=== PATIENT | male | born 1980 | race Caucasian/White ===

== ENCOUNTER 2018-03-28 02:35 | Emergency (ER) | payer BC ==
[2018-03-28] MEDS ORDERED: NS 0.9% 1000 ML** 1,000 ML IV ONE (02:57)
--- NOTE | 2018-03-28 03:02 | ED ---
Complex/Multi-Sys Presentation - HPI Summary HPI Summary: This patient is a 37 year old M presenting to ED with a chief complaint of weakness of arms and legs since RESPIRATORY PRACTITIONER. He woke up an hour after taking Seroquel ( he takes 25 mg every night but has been skipping some nights recently) and couldnt move. He called the ambulance and they went to his house and checked up on him. He went to the bathroom after the ambulance left and vomited. The patient rates the pain 4/10 in severity. Symptoms aggravated by nothing. Symptoms alleviated by nothing. Patient has been going to a utility aircrewman because of CP. He reports that he has lied to his utility aircrewman about using marijuana. - History Of Current Complaint Chief Complaint: EDGeneral Time Seen by Provider: 03/28/18 02:47 Hx Obtained From: Patient Onset/Duration: Sudden Onset, Lasting Hours Timing: Hours Severity Currently: Mild Severity Initially: Mild - 4/10 Aggravating Factor(s): nothing Alleviating Factor(s): nothing Associated Signs And Symptoms: Positive: Weakness - of arms and legs, Nausea, Vomiting - Allergies/Home Medications Allergies/Adverse Reactions: Allergies Allergy/AdvReac Type Severity Reaction Status Date / Time No Known Allergies Allergy Verified 01/10/16 20:48 PMH/Surg Hx/FS Hx/Imm Hx Endocrine/Hematology History: Denies: Hx Diabetes, Hx Thyroid Disease Cardiovascular History: Denies: Hx Hypertension Respiratory History: Denies: Hx Asthma, Hx Chronic Obstructive Pulmonary Disease (COPD) GI History: Denies: Hx Ulcer Psychiatric History: Reports: Hx Bipolar Disorder Infectious Disease History: Yes Infectious Disease History: Denies: Hx Hepatitis, Hx Human Immunodeficiency Virus (HIV), Traveled Outside the [place] in Last 30 Days - Family History Known Family History: Negative: Cardiac Disease, Hypertension - Social History Alcohol Use: None Substance Use Type: Reports: Marijuana Smoking Status (MU): Former Smoker Review of Systems Positive: Chest Pain - sees a utility aircrewman for this issue Positive: Vomiting, Nausea Positive: Weakness - of arms and legs All Other Systems Reviewed And Are Negative: Yes Physical Exam - Summary Physical Exam Summary: VITAL SIGNS: Reviewed. GENERAL: Patient is a well-developed and nourished MALE who is lying comfortable in the stretcher. Patient is not in any acute respiratory distress. HEAD AND FACE: No signs of trauma. No ecchymosis, hematomas or skull depressions. No sinus tenderness. EYES: PERRLA, EOMI x 2, No injected conjunctiva, no nystagmus. EARS: Hearing grossly intact. Ear canals and tympanic membranes are within normal limits. MOUTH: Oropharynx within normal limits. NECK: Supple, trachea is midline, no adenopathy, no JVD, no carotid bruit, no c- spine tenderness, neck with full ROM. CHEST: Symmetric, no tenderness at palpation LUNGS: Clear to auscultation bilaterally. No wheezing or crackles. CVS: Regular rate and rhythm, S1 and S2 present, no murmurs or gallops appreciated. ABDOMEN: Soft, non-tender. No signs of distention. No rebound no guarding, and no masses palpated. Bowel sounds are normal. EXTREMITIES: FROM in all major joints, no edema, no cyanosis or clubbing. NEURO: Alert and oriented x 3. No acute neurological deficits. Speech is normal and follows commands. SKIN: Dry and warm PSYCH: anxious Triage Information Reviewed: Yes Vital Signs On Initial Exam: Initial Vitals Temp Pulse Resp BP Pulse Ox 97.1 F 76 22 118/76 99 03/28/18 02:38 03/28/18 02:38 03/28/18 02:38 03/28/18 02:38 03/28/18 02:38 Vital Signs Reviewed: Yes Diagnostics - Vital Signs Vital Signs Temp Pulse Resp BP Pulse Ox 03/28/18 02:38 97.1 F 76 22 118/76 99 - Laboratory Result Diagrams: 03/28/18 03:00 03/28/18 03:00 Lab Statement: Any lab studies that have been ordered have been reviewed, and results considered in the medical decision making process. Complex Multi-Symp Course/Dx Assessment/Plan: This patient is a 37 year old M presenting to ED with a chief complaint of weakness of arms and legs since RESPIRATORY PRACTITIONER. He woke up an hour after taking Seroquel (he takes 25 mg every night but has been skipping some nights recently) and couldnt move. He called the ambulance and they went to his house and checked up on him. He went to the bathroom after the ambulance left and vomited. Patient has been going to a utility aircrewman because of CP. He reports that he has lied to his utility aircrewman about using marijuana. In the ED course, the patient was given fluids. This patient will be discharged with dx of weakness. Patient understands and agrees with this plan. - Diagnoses Differential Diagnoses/HQI/PQRI: Other - weakness Provider Diagnoses: Weakness Discharge - Sign-Out/Discharge Documenting (check all that apply): Patient Departure - discharge Patient Received Moderate/Deep Sedation with Procedure: No - Discharge Plan Condition: Stable Disposition: HOME Patient Education Materials: Weakness (ED) Referrals: Santosh Stuart MD [Primary Care Provider] - (Follow up in 1-2 days.) Additional Instructions: RETURN TO THE EMERGENCY DEPARTMENT FOR CHANGING OR WORSENING SYMPTOMS. FOLLOW UP WITH PCP IN 1-2 DAYS. - Attestation Statements Document Initiated by Scribe: Yes Documenting Scribe: Greg Paul Provider For Whom Scribe is Documenting (Include Credential): Sony Virgen MD Scribe Attestation: Greg Ochoa, scribed for Sony Virgen MD on 03/28/18 at 0350. Status of Scribe Document: Ready
[2018-03-28 03:10] LABS: ABS Basophils 0 10^3/ul (0-0.2); ABS Eosinophils 0.2 10^3/ul (0-0.6); ABS Lymphocytes 2.3 10^3/ul (1.0-4.8); ABS Monocytes 0.7 10^3/ul (0-0.8); ABS Neutrophils 3.6 10^3/ul (1.5-7.7); ABS Nucleated RBC 0 10^3/ul; Eosinophil % 2.5 %; Hematocrit 39 % (42-52); Lymphocyte % 33.4 %; Mean Corpuscular HGB Conc 33 g/dl (31-36); Mean Corpuscular Hemoglobin 31 pg (27-31); Mean Corpuscular Volume 93 fL (80-94); Mean Platelet Volume 8.1 fL (7.4-10.4); Nucleated Red Blood Cells % 0; Platelet Count 190 10^3/ul (150-450); Red Blood Count 4.21 10^6/ul (4.00-5.40); Red Cell Distribution Width 13 % (10.5-15); White Blood Count 6.8 10^3/ul (3.5-10.8)
--- OUTSIDE RECORDS SUMMARY | 2018-03-28 03:10 | XMS REPORT | Continuity of Care Document ---
:1980 External Reference #:[id number] Author Name Luis Fernando Avendaño Care Team Providers Name Role Phone Santosh Stuart MD Primary Care Physician Unavailable Payers Type Date Identification Numbers Payment Provider Subscriber Effective: Policy Number: [id number] [employer] James Calderon 2016 PayID: [id number] [address] [address] [place] [address] Advance Directives Description No Information Available Problems Description No Information Family History Date Family Member(s) Problem(s) Comments Father Congestive Heart Failure (CHF) Father Congestive Heart Failure (CHF) WPW Syndrome alcoholic Father Hypercholesterolemia Mother Hypercholesterolemia Mother Hypercholesterolemia MGF jan of [place] Onset: Siblings 3 (12/25/2016) Siblings 3 1 brother born with "hole in the heart" Social History Type Date Description Comments Sex Unknown Marital Status Single Lives With Roommate Occupation [employer] ETOH Use 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 still trying to get to a state of abstinence in regards to alcohol Tobacco Use Start: Unknown Patient has never smoked Recreational Drug Use Denies Drug Use Smoking Status Reviewed: 03/15/18 Patient has never smoked Exercise Type/Frequency Exercises regularly Allergies, Adverse Reactions, Alerts Description No Known Drug Allergies Medications Medication Date Status Form Strength Qnty SIG Indications Ordering Provider Depakote Active 500mg 3 po q hs Unknown 00 Seroquel Active Tablets 50mg take 1/2 Unknown 00 tablet by mouth at bedtime Ibuprofen Hx Tablets 600mg three Unknown 00 - times a 02/01/20 day prn 17 Azelastine HCL Hx Solution 0.05% 1 drop Unknown (Ophthalmic) 00 - each eye 11/05/20 twice 17 daily Immunizations Description No Information Available Vital Signs Date Vital Result Comment 03/15/2018 3:56pm Height 68 inches 5'8" Weight 180.00 lb with shoes Heart Rate 78 /min BP Systolic Sitting 118 mmHg BP Diastolic Sitting 80 mmHg BMI (Body Mass Index) 27.4 kg/m2 Ejection Fraction 55-60% echo 01/04/17 02/01/2017 12:56pm Height 68 inches 5'8" Weight 195.00 lb w/shoes Heart Rate 80 /min BP Systolic Sitting 112 mmHg LA lg cuff BP Diastolic Sitting 74 mmHg LA lg cuff BMI (Body Mass Index) 29.6 kg/m2 Ejection Fraction 55-60% Echo 01/04/17 12/25/2016 8:34am Height 68 inches 5'8" Weight 195.75 lb with shoes Heart Rate 68 /min BP Systolic Sitting 114 mmHg LA reg cuff BP Diastolic Sitting 78 mmHg LA reg cuff BMI (Body Mass Index) 29.8 kg/m2 Results Test Date Facility Test Result H/L Range Note Comp Metabolic Panel 01/18/2017 [facility] Sodium 138 mmol/L N 133-[address] [place] [address] [phone] Potassium 4.6 mmol/L N 3.5-5.0 Chloride 101 mmol/L N 101-111 Co2 Carbon Dioxide 30 mmol/L N 22-32 Anion Gap 7 mmol/L N 2-11 Glucose 79 mg/dL N 70-100 Blood Urea Nitrogen 11 mg/dL N 6-24 Creatinine 0.83 mg/dL N 0.67-1.17 BUN/Creatinine Ratio 13.3 N 8-20 Calcium 9.4 mg/dL N 8.6-10.3 Total Protein 6.5 g/dL N 6.4-8.9 Albumin 4.3 g/dL N 3.2-5.2 Globulin 2.2 g/dL N 2-4 Albumin/Globulin Ratio 2.0 N 1-3 Total Bilirubin 0.60 mg/dL N 0.2-1.0 Alkaline Phosphatase 46 U/L N 34-104 Alt 9 U/L N 7-52 Ast 19 U/L N 13-39 Egfr Non- 106.1 >60 Egfr 136.4 >60 1 Laboratory test 01/18/2017 [facility] TSH (Thyroid 1.78 mcIU/mL N 0.34-5.[address] Stim [place]orm) [place] [address] [phone] Vitamin B12 423 pg/mL N 180-914 3 Vitamin D 1,25 01/18/2017 [facility] Vitamin D Total 32.9 ng/mL N 20-50 4 And Vitamin D,[address]) [place] [address] [phone] Vitamin D, 1,25 Dihydroxy 42 pg/mL 18-64 5 Lipid Panel - 01/18/2017 [facility] Creatine Kinase(CK) 119 U/L N 10-223 [address] [place] [address] [phone] Lipid Profile 01/18/2017 [facility] Triglycerides 66 mg/dL 7 (Trig/Chol/HDL [address] ) [place] [address] [phone] Cholesterol 168 mg/dL 8 HDL Cholesterol 49.8 mg/dL 9 LDL Cholesterol 105 mg/dL 10 Laboratory test 01/18/2017 [facility] Erythrocyte Sed 5 mm/Hr N 0-14 [address] [place] [address] [phone] C Reactive Protein < 1.00 mg/L N < 5.00 12 1 Because ethnic data is not always readily available, this report includes an eGFR for both -Americans and non- Americans. The National Kidney Disease Education Program (NKDEP) does not endorse the use of the MDRD equation for patients that are not between the ages of 18 and 70, are , have extremes of body size, muscle mass, or nutritional status, or are non- or non-. According to the National Kidney Foundation, irrespective of diagnosis, the stage of the disease is based on the level of kidney function: Stage Description GFR(mL/min/1.73 m(2)) 1 Kidney damage with normal or decreased GFR 90 2 Kidney damage with mild decrease in GFR 60-89 3 Moderate decrease in GFR 30-59 4 Severe decrease in GFR 15-29 5 Kidney failure <15 (or dialysis) 2 FASTING fasting 3 Normal Range 180 to 914 Indeterminate Range 145 to 180 Deficient Range <145 4 FASTING fasting 5 ADDITIONAL INFORMATION This test was developed and its performance characteristics determined by [facility] in a manner consistent with CLIA requirements. This test has not been cleared or approved by the U.S. Food and Drug Administration. Test Performed by: [facility] [address], [place] [address] 6 FASTING fasting 7 Desirable: <150 Borderline High: 150-199 High: 200-499 Very High: >500 8 Desirable: <200 Borderline High: 200-239 High: >239 9 Low: <40 Desirable: 40-60 High: >60 10 Desirable: <100 Near Optimal: 100-129 Borderline High: 130-159 High: 160-189 Very High: >189 11 FASTING fasting 12 Acute inflammation: >10.00 Procedures Date Code Description Status 03/15/2018 19222 EKG Tracing & Interpretation Completed 01/19/2017 85425 Holter Monitor Review (24 hr)dr review & interp only Completed 01/18/2017 12291 ECG Monitor/Recording W/Visual Superimposition Scanning Completed 01/16/2017 55989 ECHO Stress Test Incl Perf Contiuous ekg Monitoring W/Phys Completed Superv 01/04/2017 35770 ECHO Transthoracic, Real-Time 2D With Doppler And Color Completed Flow 12/25/2016 16034 EKG Tracing & Interpretation Completed Encounters Type Date Location Provider Dx Diagnosis Office Visit 02/01/2017 [facility] Leonidas Sifuentes R00.2 Palpitations 1:00p Scotty Laboy Office Visit 12/25/2016 [facility] Leonidas Sifuentes R00.2 Palpitations 9:00a Scotty Laboy R07.9 Chest pain, unspecified F10.10 Alcohol abuse, uncomplicated R06.02 Shortness of breath R94.31 Abnormal electrocardiogram [ECG] [EKG] Z82.49 Family hx of ischem heart dis and oth dis of the circ sys Plan of Treatment Future Appointment(s):04/17/2018 11:00 am - [place] ECHO Schedule at [facility]04/03/2018 8:30 am - Nurse Visit cc at [facility]04/02/2018 10 :00 am - Nurse Visit cc at [facility]03/15/2018 - Leonidas Laboy M.D.R00.2 PalpitationsFollow up:one yr ovI77.819 Aortic ectasia, unspecified siteNew Orders:Echocardiogram, Scheduled: 04/17/18R00.1 Bradycardia, unspecifiedNew Orders:24 hour holter monitor, Scheduled: 04/02/18R53.83 Other fatigue
--- OUTSIDE RECORDS SUMMARY | 2018-03-28 03:10 | XMS REPORT | Continuity of Care Document ---
:1980 External Reference #:[id number] Author Name Terry Brambila M.D. Address [address] [address] Care Team Providers Name Role Phone Santosh Stuart M.D. Primary Care Physician Unavailable Payers Type Date Identification Numbers Payment Provider Subscriber Policy Number: [id number] [facility] Roger Calderon [address] [place] [id number] Policy Number: [id number] [facility] James Calderon PayID: [id number] 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 Tobacco Use Start: Unknown Never Smoked Cigarettes Tobacco Use Start: Unknown Never Smoked Cigars Tobacco Use Start: Unknown Never Smoked A Pipe Smokeless Tobacco Never Used Smokeless Tobacco ETOH Use Denies alcohol use Tobacco Use Start: Unknown Patient has never smoked Smoking Status Reviewed: 03/06/18 Patient has never smoked Allergies, Adverse Reactions, Alerts Description No Known Drug Allergies Medications Medication Date Status Form Strength Qnty SIG Indications Ordering Provider Seroquel Active Tablets 25mg as directed Unknown [address] 1500mg 1 by mouth Unknown 00 twice a day Immunizations Description No Information Available Vital Signs Date Vital Result Comment 03/06/2018 10:19am Weight 180.00 lb Weight 81.648 kg Height 68 inches 5'8" Height in cm's 172.7 cm BMI (Body Mass Index) 27.4 kg/m2 Results Description No Information Available Procedures Date Code Description Status 03/06/2018 45765 Nasal Endoscopy, Diagnostic Completed Encounters Type Date Location Provider Dx Diagnosis Office Visit 03/06/2018 [place],After Terry Perez G50.1 Atypical facial 10:00a 02/19/07 Maris Brambila. pain J01.20 Acute ethmoidal sinusitis, unspecified Plan of Treatment 03/06/2018 - Terry Brambila M.D.G50.1 Atypical facial painComments:The patient has been having some pain around his right eye since being sick with a URI in January. He saw the eye doctor and his eye is normal. He showed a Panorex from September and that does not show anything in his sinus. His nasal endoscopy was normal. I think it is fine to use the salve in his nose but that is not going to get to the sinuses.I suspect he may have an ethmoidal sinusitis following the URI. He says that over the past week it is getting better. I think are options are:Do nothing since he is getting betterA course of antibiotics, like Augmentin or a second generation cephalosporinCT scanFor now he will give it more time and call for antibiotics if needed.J01.20 Acute ethmoidal sinusitis, unspecified
[2018-03-28 03:21] LABS: Albumin 4.2 g/dL (3.2-5.2); Potassium 3.6 mmol/L (3.5-5.0); Total Bilirubin 0.2 mg/dL (0.2-1.0)
[2018-03-28 03:27] LABS: Albumin/Globulin Ratio 1.9 (1-3); BUN/Creatinine Ratio 16.1 (8-20); EGFR African American 111.9 (>60); EGFR Non-African American 92.5 (>60); Globulin 2.2 g/dL (2-4); Total Protein 6.4 g/dL (6.4-8.9)
[2018-03-28 04:52] VITALS: BP 114/68
== END 2018-03-28 04:50 | disposition home or self-care (01) ==
LOC: ED 02:35
DX: R53.1 Weakness (principal); F31.9 Bipolar disorder, unspecified; Z87.891 Personal history of nicotine dependence
CPT/HCPCS: 36415; 80053; 80164; 82550; 83735; 85025; 96360; 96361; 99283

== ENCOUNTER 2018-08-21 13:48 | Emergency (ER) | payer BC ==
[2018-08-21 14:01] VITALS: BP 98/51
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
== END 2018-08-21 15:51 | disposition home or self-care (01) ==
LOC: UCEAST 13:48
DX: S09.90XA Unspecified injury of head, initial encounter (principal); S16.1XXA Strain of muscle, fascia and tendon at neck level, initial encounter; V18.0XXA Pedal cycle driver injured in noncollision transport accident in nontraffic accident, initial encounter; Y93.55 Activity, bike riding; Y92.9 Unspecified place or not applicable; Z87.891 Personal history of nicotine dependence
CPT/HCPCS: 70450; 70486; 72125; 99211; G0463